=== PATIENT | male | born 1995 | race Two or more races ===

== ENCOUNTER 2018-08-20 11:10 | Day surgery (SDC) | payer OTHER ==
[~2018-08-20] VITALS: Ht 177.8 cm; Wt 80.7 kg
[2018-08-20] VITALS (10 sets, daily range): BP systolic 116–136; BP diastolic 54–80
--- NOTE | 2018-08-20 06:59 | Pre-Procedure Note/Attestation ---
Pre-Procedure Note/Attestation Complete Prior to Procedure Planned Procedure: left Procedure Narrative: left knee scope, medial lateral meniscectomy Indications for Procedure Pre-Operative Diagnosis: left knee meniscus tear Attestation I attest that I discussed the nature of the procedure; its benefits; risks and complications; and alternatives (and the risks and benefits of such alternatives ), prior to the procedure, with the patient (or the patient's legal commissary representative). I attest that, if there was a reasonable possibility of needing a blood transfusion, the patient (or the patient's legal commissary representative) was given the [facility] standardized written summary, pursuant to the [place] Blood Safety Act ([place] Health and Safety Code # 1645, as amended). I attest that I re-evaluated the patient just prior to the surgery and that there has been no change in the patient's H&P, except as documented below: none Raz Emery MD Aug 20, 2018 06:59
[~2018-08-20 11:10] MED LIST: NKM; ceFAZolin 1gm IVPB IVPB ONE; celeBREX 200mg Cap **SURGERY PATIENTS ONLY ORAL ONE; oxyCONTIN 20mg tab ORAL ONE
[2018-08-20] MEDS ORDERED: oxyCONTIN 20mg tab ORAL ONE (11:40)
[2018-08-20] MEDS ORDERED: celeBREX 200mg Cap **SURGERY PATIENTS ONLY ORAL ONE (11:40)
[2018-08-20] MEDS ORDERED: LR 1000ml 1,000 ML IVLG SCH (11:49)
--- NOTE | 2018-08-20 11:49 | Anethesia Preoperative Eval ---
Anesthesia Pre-op PMH/ROS General Date of Evaluation: Aug 20, 2018 Anesthesiologist: Wes ASA Score: ASA 1 Mallampati Score Class I : Soft palate, uvula, fauces, pillars visible Class II: Soft palate, uvula, fauces visible Class III: Soft palate, base of uvula visible Class IV: Only hard plate visible Mallampati Classification: Class I Surgeon: Rupert Diagnosis: Left knee torn medial meniscus Surgical Procedure: Left knee arthroscopy Anesthesia History: none Family History: no anesthesia problems Allergies: Coded Allergies: No Known Allergies (Unverified , 08/20/18) Medications: see eMAR Patient NPO?: Yes NPO Date: Aug 19, 2018 NPO Time: 22:00 Past Medical History Cardiovascular: Denies: HTN, CAD, [place], valve dz, arrhythmia, other Pulmonary: Denies: asthma, COPD, DAFNE, other Gastrointestinal/Genitourinary: Denies: GERD, CRI, ESRD, other Neurologic/Psychiatric: Denies: dementia, CVA, depression/anxiety, TIA, other Endocrine: Denies: DM, hypothyroidism, steroids, other HEENT: Denies: cataract (L), cataract (R), glaucoma, [place] (L), [place] (R), other Hematology/Immune: Denies: anemia, DVT, bleeding disorder, other Musculoskeletal/Integumentary: Denies: OA, RA, DJD, DDD, edema, other PSxH Narrative: Left hand sx Anesthesia Pre-op Phys. Exam Physician Exam Last Vital Signs Date Time Temp Pulse Resp B/P (MAP) Pulse Ox O2 Delivery O2 Flow Rate FiO2 08/20/18 11:45 98.4 66 18 124/75 99 Room Air Constitutional: NAD Cardiovascular: RRR Respiratory: CTA Airway Exam Mallampati Score: Class II MO: full ROM: full Teeth: intact Anesthesia Pre-op A/P Labs see chart Risk Assessment & Plan Assessment: ASA I Plan: GA Status Change Before Surgery: No Pre-Antibiotics Drug: Ancef 2g Given Within 1 Hr of Incision: Yes Ree De MD Aug 20, 2018 11:49
[2018-08-20] MEDS ORDERED: Zemuron 50mg/5ml Inj IV ONE (11:58)
[2018-08-20] MEDS ORDERED: Midazolam 2mg/2ml Inj ONE (11:59)
[2018-08-20] MEDS ORDERED: Lidocaine 1% MPF 10mg/ml 5ml ONE (11:59)
[2018-08-20] MEDS ORDERED: fentaNYL 100 mcg/2 mL IV ONE (11:59)
[2018-08-20] MEDS ORDERED: Propofol 200mg/20ml IV ONE (11:59)
[2018-08-20] MEDS ORDERED: LR 1000ml ONE (12:00)
[2018-08-20] MEDS ORDERED: Hydromorphone 0.5mg/0.5ml inj IVP PRN (12:00)
[2018-08-20] MEDS ORDERED: fentaNYL 100 mcg/2 mL IV PRN (12:00)
[2018-08-20] MEDS ORDERED: DiphenhydrAMINE 50mg/ml Inj IVP PRN (12:00)
[2018-08-20] MEDS ORDERED: Ketorolac 30mg Inj IV PRN (12:00)
[2018-08-20] MEDS ORDERED: NS Irrig 4000ml IRRIG ONE ×3 (12:00→12:52)
[2018-08-20] MEDS ORDERED: Sterile Water Irrig 1000ml IRRIG ONE (12:00)
[2018-08-20] MEDS ORDERED: Midazolam 2mg/2ml Inj IVP PRN (12:00)
[2018-08-20] MEDS ORDERED: LORazepam Inj 2mg/ml 1ml IV PRN (12:00)
[2018-08-20] MEDS ORDERED: NS Irrig 1000ml ONE (12:00)
[2018-08-20] MEDS ORDERED: Ropivacaine 5mg/ml Vial 30ml INJ ONE (12:11)
[2018-08-20] MEDS ORDERED: D5 1/2NS 1,000 ML IV SCH (12:15)
[2018-08-20] MEDS ORDERED: HYDROcodone/Acetamin 5/325 tab ORAL PRN (12:15)
[2018-08-20] MEDS ORDERED: Tylenol #3 tab (300mg/30mg) ORAL PRN (12:15)
[2018-08-20] MEDS ORDERED: HYDROmorphone 1mg/ml Carpuject SUBQ PRN (12:15)
--- NOTE | 2018-08-20 12:58 | Brief Operative Note ---
Immediate Post Operative Note Operative Note Chief Complaint: left knee pain Pre-op Diagnosis: left knee meniscus tear Procedure: left knee scope, meniscectomy Post-op Diagnosis: same as pre-op Findings: consistent w/pre-op dx studies Surgeon: md shonna Anesthesiologist: md tara Anesthesia: general Specimen: none Complications: none Condition: stable Fluids: ns Estimated Blood Loss: minimal Drains: none Implant(s) used?: No Agnes Birch Aug 20, 2018 12:58
--- NOTE | 2018-08-20 13:16 | 48 Hour Post Anesthesia Eval ---
Post Anesthesia Evaluation Procedure: Left knee arthroscopy Date of Evaluation: Aug 20, 2018 Airway: patent Nausea: No Vomiting: No Pain Intensity: 0 Hydration Status: adequate Cardiopulmonary Status: at baseline Mental Status/LOC: patient returned to baseline Post-Anesthesia Complications: 0 Follow-up care needed: ready to discharge Ree De MD Aug 20, 2018 13:16
--- NOTE | 2018-08-20 13:16 | Immediate Post-Op Evaluation ---
Immediate Post-Op Evalulation Immediate Post-Op Evalulation Procedure: Left knee arthroscopy Date of Evaluation: Aug 20, 2018 Time of Evaluation: 13:16 IV Fluids: 500 Blood Products: 0 Estimated Blood Loss: min Urinary Output: 0 Blood Pressure Systolic: 117 Blood Pressure Diastolic: 58 Pulse Rate: 49 Respiratory Rate: 16 O2 Sat by Pulse Oximetry: 100 Temperature (Fahrenheit): 97.6 Pain Score (1-10): 0 Nausea: No Vomiting: No Complications 0 Patient Status: awake, reacts, patent, none Hydration Status: adequate Drug: Ancef 2g Given Within 1 Hr of Incision: Yes Time Given: 12:25 Ree De MD Aug 20, 2018 13:16
--- NOTE | 2018-08-20 19:15 | Operative Note - Dictated ---
DATE OF OPERATION: 08/20/2018 PREOPERATIVE DIAGNOSES: 1. Left knee posterior horn medial meniscus tearing. 2. Left knee anterior horn lateral meniscus tearing. POSTOPERATIVE DIAGNOSES: 1. Left knee chondral flap over the anterior lateral aspect of the femoral condyle. 2. Left knee undersurface horizontal cleavage tear of the posterior horn of the medial meniscus with approximately 1 cm without significant instability. 3. No evidence of anterior horn lateral meniscus tearing. PROCEDURE: 1. Left knee arthroscopy and extensive intraarticular shaving. 2. Left knee lateral femoral chondroplasty. 3. Left knee repair of the undersurface tear of the medial meniscus using trephination technique. SURGEON: Raz Emery M.D. PARAPROFESSIONAL AIDE TEACHER: Agnes Birch PA-C. Cans Vacuum Tester was present during the actual operative portion of the case and was important and essential part of the operation. During the operation, the health care assistant held and operated the arthroscopic camera for visualization, assisted by manipulating the leg to help with visualization, and helped with essential parts of the repair process as necessary such as operating surgical instruments under surgeon supervision, suture management, and wound closures. ANESTHESIOLOGIST: Ree Harvey M.D. ANESTHESIA: General LMA anesthesia. TOURNIQUET TIME: 25 minutes. EBL: Minimal. COMPLICATIONS: None. SURGICAL INDICATION: Patient is a 22-year-old male who sustained the above injury to his Knee. The patient was treated non-operative initially, but this did not alleviate the patients symptoms. Therefore, after discussing all non-surgical and surgical options, and discussing all foreseeable risk and benefits of surgery, the patient opted for surgical treatment as described above. PATIENT POSITIONING: Patient was brought to the operating room table and placed supine. All pressure points were well padded. General Anesthesia was induced and a well padded tourniquet was placed on the thigh. The lateral post was placed and positioned to allow for opening of the medial compartment of the knee without placing pressure over the fibular head. Patients entire leg was prepped and draped in the usual sterile fashion. Time out was performed and preop abx was given and after exsanguinating the lower extremity, the tourniquet was inflated to 275 mm of mercury. EXAMINATION OF THE KNEE UNDER ANESTHESIA: Before prepping and draping the knee and while the patient was relaxed under general anesthesia, the knee was examined for ROM, and anterior and posterior, medial and lateral, posterolateral, and posteromedial instability. Pivot shift testing was performed. There was no evidence of loss of motion or instability and the pivot shift testing was negative. PORTAL PLACEMENT: The lateral portal was placed with the knee flexed to 90 degrees at the level of inferior border of the patella in line with the lateral border of the patella. A cm skin incision was made with an eleven blade, and using a blunt obturator, the capsule was gently penetrated. Sterile saline solution was then infused inside the knee with the aid of a pump set at 35 mm mercury pressure. Under direct visualization, placement of the medial portal was preliminary judged using a spinal needle, and it was subsequently established using the same technique as the lateral portal. Care was given not to injure the cutaneous branches of the medial Saphenous nerve or the subcutaneous veins. DIAGNOSTIC ARTHROSCOPY: The suprapatellar patellar pouch was visualized. There was no evidence of scar tissue or loose fragments. The medial and lateral patellar facets and trochlear groove articular cartilage was visualized. The medial plica shelf and the corresponding medial femoral condyle articular cartilage were visualized. There was no significantly thickening of the medial plica shelf and there were no kissing? lesion over the medial femoral condyle. The lateral gutter and the posterolateral corner of the knee were visualized. There were no loose bodies, and the popliteus tendon and other structures of the posterolateral corner of the knee were intact intra-articularly. At this point, the knee was placed in the figure of four position and the lateral compartment was entered. The lateral femoral condyle, lateral tibial plateau, and the anterior, body, and the posterior horn of the lateral meniscus were visualized and probed. There was a chondral flap over the anterior medial aspect of the lateral femoral condyle as it articulated with the anterior horn lateral meniscus. This chondral flap was unstable. The lateral meniscus was completely intact both on its undersurface and on the top. The knee was then placed at 90 degree and the ACL and PCL were visualized and probed. The ACL was completely intact on visualization and probing, and it had excellent tension. The PCL was completely intact on visualization and probing and it had excellent tension. The medial compartment was then entered and the medial femoral condyle, medial tibial plateau, and the anterior, body, and the posterior horn of the medial meniscus were visualized and probed. The articular surfaces were intact and devoid of articular cartilage damage. The majority of the meniscus was intact; however, there was an undersurface tear of the junction of posterior horn and body of the medial meniscus, which was about a centimeter. The probe could be placed underneath and inside of this tear. This was in the meniscocapsular junction. There was no evidence of defect or loose fragments. The scope was then brought back to the patella femoral compartment. For lateral compartment chondroplasty Care was given to the area of cartilage damage in the lateral compartment. The frayed and loose fragments of articular cartilage were debrided using a motorized shaver. Suction was used to pull in the loose fragments and flaps of the cartilage and to minimize damage to the intact and well attached portion of the cartilage. This allowed for smooth surfaces for the articular cartilage. For medial meniscectomy At this point, attention was given to the medial meniscus. Using combination of baskets and deonte, the torn portion of the medial meniscus was removed. Attention was given to remove all displaced and unstable portion of the medial meniscus while maintaining as much of the functional portion of the meniscus as possible. The transition between the meniscectomy portion and intact portion of the meniscus was smoothed out with combination of small baskets and deonte. Excellent transition zone was obtained in this fashion. At this point, care was given to the medial meniscus undersurface tear. This was at the meniscocapsular junction. Due to the young age of the patient and poor results with subtotal medial meniscectomy, a meniscus repair was contemplated. The tear was less than 1 cm on the undersurface of the meniscus. Upon probing, this could be displaced slightly. It should be noted that the top portion of the meniscus was intact. Therefore, using a spinal needle, multiple pull holes were made at the meniscocapsular junction to bring blood supply to the area. Suture anchor repair was not performed due to just an undersurface tear and the top portion was intact and the meniscus was generally stable. CONDITION AT DISCHARGE FROM OPERATING ROOM: The knee was irrigated with copious amount of normal saline at the end of the procedure. The scope was removed and the water was drained. The skin edges were re-approximated and sterile dressing was applied. All lap count and instrument counts were correct. Patient tolerated the procedure well without complications and was taken to the recovery room in stable conditions. Raz Sveta Emery DR: CHERIE JOB#: [id number] CC:
== END 2018-08-20 15:15 | disposition home or self-care (01) ==
LOC: SUR 11:10
DX: S83.242A Other tear of medial meniscus, current injury, left knee, initial encounter (principal); M24.10 Other articular cartilage disorders, unspecified site
CPT/HCPCS: 29881; 97161; J0690; J1885; J2250; J2704; J2795; J3010; 94003; 94150